=== PATIENT | female | born 1955 | race Caucasian/White ===

== ENCOUNTER → 2017-04-07 | Outpatient (CLI) | payer BC ==
[~2017-04-07] MED LIST: ADIPEX-P37.5 M2 PO; ADVIL200 MG PO; CYMBALTA60 MG PO; GLUCOPHAGE1000 MG PO; HYDROCODONE BIT1 T11 PO; NEURONTIN800 MG PO; PRILOSEC20 M1 PO; WELLBUTRIN XL150 MG PO; ZESTRIL10 MG PO
[2017-04-07 10:14] LABS: HEMATOCRIT 37.6 % (37.0-47.0); HEMOGLOBIN 11.7 g/dl (12.0-16.0); MEAN CELL VOLUME 81.7 fl (81.0-99.0); MEAN CORPUSCULAR HGB 25.4 pg (27.0-31.0); MEAN CORPUSCULAR HGB CONC 31.1 g/dl (33.0-37.0); MEAN PLATELET VOLUME 9.2 fl (9.6-12.3); RED BLOOD COUNT 4.6 10*6/uL (4.10-5.10); RED CELL DISTRI WIDTH 14.1 % (0-14.5); WHITE BLOOD COUNT 6.2 10*3/uL (4.8-10.8)
[2017-04-07 10:31] LABS: HEMOGLOBIN A1c 5.4 % (4.8-5.6)
[2017-04-07 10:46] LABS: ALBUMIN 3.6 gm/dl (3.1-4.5); BILIRUBIN, TOTAL 0.3 mg/dl (0.2-1.0); POTASSIUM 4.2 mmol/L (3.5-5.1); TOTAL PROTEIN 6.7 gm/dL (6.4-8.2)
== END | disposition home or self-care (01) ==
LOC: LAB 10:01
PROVIDERS: Family Medicine
DX: E55.9 Vitamin D deficiency, unspecified (principal); I10 Essential (primary) hypertension; E74.9 Disorder of carbohydrate metabolism, unspecified; K21.9 Gastro-esophageal reflux disease without esophagitis; E66.9 Obesity, unspecified; F41.1 Generalized anxiety disorder; E74.00 Glycogen storage disease, unspecified

== ENCOUNTER → 2017-05-07 | Outpatient (CLI) | payer BC ==
[2017-05-07 10:55] LABS: ALBUMIN 3.4 gm/dl (3.1-4.5); PHOSPHOROUS 3.5 mg/dL (2.5-4.9)
== END | disposition home or self-care (01) ==
LOC: LAB 09:59
PROVIDERS: Family Medicine
DX: I10 Essential (primary) hypertension (principal)

== ENCOUNTER → 2017-07-30 | Outpatient (CLI) | payer BC ==
[2017-07-30 11:40] LABS: ALBUMIN 3.6 gm/dl (3.1-4.5); ALKALINE PHOSPHATASE 91 U/L (45-117); BUN 17 mg/dl (7-24); CHLORIDE 111 mmol/L (98-107); CPK 51 U/L (26-192); CREATININE 1.19 mg/dL (0.55-1.02); POTASSIUM 3.9 mmol/L (3.5-5.1); SGOT/AST 12 IU/L (3-35); SGPT/ALT 21 U/L (12-78); SODIUM 140 mmol/L (136-145); TOTAL PROTEIN 6.9 gm/dL (6.4-8.2)
[2017-07-31 08:12] LABS: RHEUMATOID ARTHRITIS FACTOR <10.0 IU/mL (0.0-13.9)
[2017-07-31 13:09] LABS: ANTI-DSDNA ANTIBODIES 096339 <1 IU/mL (0-9)
== END | disposition home or self-care (01) ==
LOC: LAB 10:37
PROVIDERS: Family Medicine
DX: E74.9 Disorder of carbohydrate metabolism, unspecified (principal); M79.1 Myalgia; M25.50 Pain in unspecified joint

== ENCOUNTER → 2018-03-09 | Outpatient (CLI) | payer BC ==
[2018-03-09 09:17] LABS: HEMATOCRIT 37.4 % (37.0-47.0); HEMOGLOBIN 11.5 g/dl (12.0-16.0); MEAN CELL VOLUME 82.2 fl (81.0-99.0); MEAN CORPUSCULAR HGB 25.3 pg (27.0-31.0); MEAN CORPUSCULAR HGB CONC 30.7 g/dl (33.0-37.0); MEAN PLATELET VOLUME 9.9 fl (9.6-12.3); RED BLOOD COUNT 4.55 10*6/uL (4.10-5.10); RED CELL DISTRI WIDTH 14.6 % (0-14.5); WHITE BLOOD COUNT 7.1 10*3/uL (4.8-10.8)
[2018-03-09 09:38] LABS: ALBUMIN 3.4 gm/dl (3.1-4.5); ALKALINE PHOSPHATASE 95 U/L (45-117); BUN 14 mg/dl (7-24); CHLORIDE 108 mmol/L (98-107); CHOLESTEROL 184 mg/dL (<200); CREATININE 1.02 mg/dL (0.55-1.02); HDL CHOLESTEROL 37 mg/dl (40-60); LDL CHOLESTEROL 133 mg/dL (9-159); POTASSIUM 4.5 mmol/L (3.5-5.1); SGOT/AST 13 IU/L (3-35); SGPT/ALT 26 U/L (12-78); SODIUM 142 mmol/L (136-145); TOTAL PROTEIN 6.7 gm/dL (6.4-8.2); TRIGLYCERIDES 72 mg/dl (<150); VLDL CHOLESTEROL 14 mg/dL (6-40)
== END | disposition home or self-care (01) ==
LOC: LAB 08:48
PROVIDERS: Family Medicine
DX: E78.00 Pure hypercholesterolemia, unspecified (principal); I10 Essential (primary) hypertension; E55.9 Vitamin D deficiency, unspecified; K21.9 Gastro-esophageal reflux disease without esophagitis; R79.89 Other specified abnormal findings of blood chemistry

== ENCOUNTER → 2018-03-12 | Outpatient (CLI) | payer BC | END | disposition home or self-care (01) | LOC: US 12:30 | DX: I65.23 Occlusion and stenosis of bilateral carotid arteries (principal); H57.8 Other specified disorders of eye and adnexa ==

== ENCOUNTER 2018-10-11 16:10 | Emergency (ER) | payer BC ==
[~2018-10-11] VITALS: Ht 177.8 cm; Wt 90.7 kg
[~2018-10-11 16:10] MED LIST changes: +LEVAQUIN750 M1 PO; +MUCINEX ER600 MG PO; +PREDNISONE10 MG PO; +VITAMIN D5000 UNI1 PO
[2018-10-11 16:14] VITALS: BP 152/85
[2018-10-11] MEDS ORDERED: AMINOPHYLLIN200 MG PO (18:31)
== END 2018-10-11 18:40 | disposition home or self-care (01) ==
LOC: ED 16:10
DX: H65.91 Unspecified nonsuppurative otitis media, right ear (principal); J06.9 Acute upper respiratory infection, unspecified; I12.9 Hypertensive chronic kidney disease with stage 1 through stage 4 chronic kidney disease, or unspecified chronic kidney disease; E11.22 Type 2 diabetes mellitus with diabetic chronic kidney disease; N18.3 Chronic kidney disease, stage 3 (moderate); Z88.2 Allergy status to sulfonamides; Z88.8 Allergy status to other drugs, medicaments and biological substances; Z79.2 Long term (current) use of antibiotics; Z79.1 Long term (current) use of non-steroidal anti-inflammatories (NSAID); Z79.84 Long term (current) use of oral hypoglycemic drugs; J02.9 Acute pharyngitis, unspecified; Z79.899 Other long term (current) drug therapy; Z87.442 Personal history of urinary calculi; Z90.49 Acquired absence of other specified parts of digestive tract; Z90.710 Acquired absence of both cervix and uterus

== ENCOUNTER → 2018-11-06 | Outpatient (CLI) | payer BC ==
[~2018-11-06] MED LIST changes: +AMINOPHYLLIN200 MG PO
[2018-11-06 09:12] LABS: HEMATOCRIT 35.2 % (37.0-47.0); HEMOGLOBIN 10.7 g/dl (12.0-16.0); MEAN CORPUSCULAR HGB 23.7 pg (27.0-31.0); MEAN CORPUSCULAR HGB CONC 30.4 g/dl (33.0-37.0); MEAN PLATELET VOLUME 9.9 fl (9.6-12.3); RED BLOOD COUNT 4.51 10*6/uL (4.10-5.10); WHITE BLOOD COUNT 7.3 10*3/uL (4.8-10.8)
[2018-11-06 09:23] LABS: ALBUMIN 3.2 gm/dl (3.1-4.5); ALKALINE PHOSPHATASE 96 U/L (45-117); BUN 8 mg/dl (7-24); CHLORIDE 107 mmol/L (98-107); CREATININE 1.07 mg/dL (0.55-1.02); POTASSIUM 3.8 mmol/L (3.5-5.1); SGOT/AST 11 IU/L (3-35); SGPT/ALT 23 U/L (12-78); SODIUM 141 mmol/L (136-145); TOTAL PROTEIN 6.7 gm/dL (6.4-8.2)
== END | disposition home or self-care (01) ==
LOC: LAB 08:37
PROVIDERS: Family Medicine
DX: D64.9 Anemia, unspecified (principal); K21.9 Gastro-esophageal reflux disease without esophagitis; E74.9 Disorder of carbohydrate metabolism, unspecified

== ENCOUNTER → 2018-12-17 | Outpatient (CLI) | payer BC ==
[2018-12-18 07:08] LABS: RHEUMATOID ARTHRITIS FACTOR <10.0 IU/mL (0.0-13.9)
== END | disposition home or self-care (01) ==
LOC: LAB 08:24
PROVIDERS: Family Medicine
DX: E55.9 Vitamin D deficiency, unspecified (principal); M25.50 Pain in unspecified joint; M79.10 Myalgia, unspecified site

== ENCOUNTER → 2019-01-29 | Outpatient (CLI) | payer BC ==
[~2019-01-29] MED LIST changes: +DOXYCYCLINE100 MG PO; +TAMIFLU 75MG CA75 MG PO; +VITAMIN D32000 UNI1 PO
== END | disposition home or self-care (01) ==
LOC: RAD 13:37
DX: R06.02 Shortness of breath (principal)

== ENCOUNTER 2019-02-21 14:08 | Inpatient (IN) | payer BC ==
[~2019-02-21] VITALS: Ht 177.8 cm; Wt 95.3 kg
--- NOTE | ~2019-02-21 | CON ---
[place], [place] REPORT OF CONSULTATION NAME: JORGE RUDOLPH [facility] #: [id number] UNIT #: [id number] ROOM: 519 DOCTOR: GIDEON RASCON MDKIERRA BIRTHDATE: [birth year] DOS: 02/23/2019 PULMONARY CONSULTATION EVALUATION AND MANAGEMENT CONSULTATION REQUESTED BY: Hospitalist service. REASON FOR CONSULTATION: For the assessment of acute influenza infection and other respiratory symptoms. HISTORY OF PRESENT ILLNESS: This is a 63-year-old female patient with past history of bronchial asthma. The patient presented to the Emergency Room as he has been complaining of having increased respiratory symptom for the past few days. She has been treated with acute bronchitis in the past 2 months, frequently. The symptoms of coughing had not resolved. She has been recently treated with amoxicillin. The coughing has been noted with small amount of sputum expectoration, which is described as breath decreased as well. The patient came into the Emergency Room as he has been diagnosed with a positive ANCA nasal washings. The patient does have symptoms of wheezing. The patient is intermittently with chest congestion. She has been also noted with symptoms of hoarseness with current symptoms. Nonspecific chest pain was also reported. REVIEW OF SYSTEMS: CONSTITUTIONAL: The patient was noted to have some tachycardia, symptoms of fever and chills at home prior to admission to the hospital. EYES: Denies burning, redness, or discharge. EARS, NOSE, AND THROAT: Denies sore throat, hoarseness with some sore throat was reported. No postnasal drainage or epistaxis. CARDIOVASCULAR: No angina pain, edema, pain of the lower extremities. GASTROINTESTINAL: No dysphagia, nausea, vomiting, diarrhea, abdominal pain, hematemesis, melena, or hematochezia. GENITOURINARY: Denies symptoms of dysuria, suprapubic pain, or hematuria. MUSCULOSKELETAL: Aches and pains of the muscles reported on admission. There were no joint pain, redness, tenderness, or any deformities. CENTRAL NERVOUS SYSTEM: No dizziness, headache, diplopia, or syncopal episodes. Remaining systems were reviewed. They were noted all negative. PAST MEDICAL HISTORY: 1. Bronchial asthma. 2. Type 2 diabetes mellitus. 3. Chronic kidney disease stage 3. 4. Chronic moderate obesity. 5. History of fibromyalgia. 6. Essential hypertension. 7. Nephrolithiasis. 8. Polycystic ovarian syndrome. PAST SURGICAL HISTORY: 1. D and C. 2. Cholecystectomy. [place], [place] REPORT OF CONSULTATION [facility]: [id number] UNIT #: [id number] ROOM: [facility] DOCTOR: GIDEON RASCON MD,KIERRA BIRTHDATE: [birth year] 3. Hysterectomy. 4. Lithotripsy. 5. Nasal septoplasty. 6. Tubal ligation. SOCIAL HISTORY: The patient stated she is , has 2 children, lives at home. Nonsmoker lifetime. Denies alcohol use or illicit drugs. FAMILY HISTORY: The patient's father at 85 years of old age. Mother , 45 years old with complications of colon cancer. HOME MEDICATIONS: Listed as Cymbalta, Neurontin, Mucinex, Advil, Restoril and Prilosec. DRUG ALLERGY HISTORY: REPORTED THE PATIENT SULFA DRUGS CAUSING RASH, IODINE, CAUSING HIVES AND QUINAPRIL, GENERALIZED RASH WELL. CURRENT MEDICATIONS: Administered today as Cymbalta, lisinopril, vitamin D, DuoNeb, ibuprofen, Zithromax, Rocephin, Lovenox, Protonix, gabapentin, Mucinex, Solu-Medrol 40 mg b.i.d., Tamiflu 75 mg b.i.d. and other p.r.n. medications. PHYSICAL EXAMINATION: GENERAL: This is a 63-year-old female patient currently sitting on the bed. The patient this morning has been noted with [id number] hoarseness upon speaking. No acute distress. Height of 5 feet 10 inches, weight of 210 pounds. VITAL SIGNS: Normal temperature since admission, respiratory rate 18-20, heart rate 89-102, blood pressure 127/63-141/66. Pulse oxygen saturation, rest on room air was 94% saturation. HEENT: Chronic moderate obesity. Head was atraumatic. Eyes nonicterus. CARDIOVASCULAR SYSTEM: S1, S2 audible. LUNGS: Moderate decreased breath sounds, rhonchorous breathing in the lungs bilaterally with scattered wheezing. ABDOMEN: Soft, nontender. Bowel sounds present. EXTREMITIES: No edema. MUSCULOSKELETAL: Without any acute deformity. CENTRAL NERVOUS SYSTEM: Cranial nerves 2-12 intact. LABORATORY DATA: CBC on admission on 02/21/2019, essentially is 4.7% eosinophils. WBC count 5.4 with normal hemoglobin and hematocrit. Lactic acid 1.2 on 02/21/2019. CMP on 02/21/2019, BUN 16, creatinine 1.35. Remaining CMP normal except AST of 37. CBC that was done this morning, WBC count 4.6, hemoglobin 10.2, platelet count was normal. CMP that was done 326, BUN normal, creatinine normal, glucose 161. Albumin 3.0. PT/INR yesterday was noted normal on admission. Influenza A and B, nasal washing screen noted positive for influenza infection. RADIOLOGY DATA: Reviewed has a chest x-ray that was done on 02/23/2019, noted normal study. The chest x-ray that was done on 02/21/2019, does not show acute pulmonary infiltration. [place], [place] REPORT OF CONSULTATION NAME: JORGE RUDOLPH UNIT #: [id number] ROOM: [facility] DOCTOR: KIERRA FRANKLIN MD BIRTHDATE: [birth year] IMPRESSION: 1. The patient to come into the hospital with acute exacerbation of bronchial asthma and result of acute influenza infection. There was no evidence of acute pneumonia at this time, viral or bacterial in origin. 2. Chronic moderate obesity as well. 3. History of type 2 diabetes mellitus. 4. Leukopenia, most likely related to current acute viral illness. PLAN OF TREATMENT: Continuation of the corticosteroids, bronchodilators, oxygen supplementation. Assessment upon discharge for the pulmonary disease was recommended. The patient was noted nonsmoker. Other therapy, plan of management and other treatment as previously would be continued without any changes. Usual care, other supportive plan of management and care plan. KIERRA MENESES MD CM:CONSTR:REPORT OF CONSULTATION 1513 02/24/19 0338 interface
--- NOTE | ~2019-02-21 | EKG ---
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
[~2019-02-21 14:08] MED LIST changes: -DOXYCYCLINE100 MG PO; -TAMIFLU 75MG CA75 MG PO; -VITAMIN D32000 UNI1 PO
[2019-02-21 14:12] VITALS: BP 100/69
[2019-02-21 14:37] LABS: BASO % 0.4 % (0.0-1.0); EOS # 0.3 10*3/uL (0.0-0.4); EOS % 4.7 % (1.0-4.0); HEMATOCRIT 39.9 % (37.0-47.0); HEMOGLOBIN 12.2 g/dl (12.0-16.0); LYMPH # 1.2 10*3/uL (1.3-4.4); LYMPH % 22.2 % (27.0-41.0); MEAN CELL VOLUME 80.6 fl (81.0-99.0); MEAN CORPUSCULAR HGB 24.6 pg (27.0-31.0); MEAN CORPUSCULAR HGB CONC 30.6 g/dl (33.0-37.0); MEAN PLATELET VOLUME 10.3 fl (9.6-12.3); MONO # 0.5 10*3/uL (0.1-1.0); MONO % 9.2 % (3.0-9.0); NEUT # 3.4 10*3/uL (2.3-7.9); NEUT % 63.3 % (47.0-73.0); PLATELET COUNT AUTOMATED 245 10*3/uL (130-400); RED BLOOD COUNT 4.95 10*6/uL (4.10-5.10); RED CELL DISTRI WIDTH 18.2 % (0-14.5); WHITE BLOOD COUNT 5.4 10*3/uL (4.8-10.8)
[2019-02-21 15:12] LABS: ALBUMIN 3.3 gm/dl (3.1-4.5); ALKALINE PHOSPHATASE 115 U/L (45-117); BUN 16 mg/dl (7-24); CHLORIDE 103 mmol/L (98-107); CREATININE 1.35 mg/dL (0.55-1.02); POTASSIUM 4.3 mmol/L (3.5-5.1); SGOT/AST 37 IU/L (3-35); SGPT/ALT 37 U/L (12-78); SODIUM 137 mmol/L (136-145); TOTAL PROTEIN 7.6 gm/dL (6.4-8.2)
[2019-02-21 15:14] LABS: TROPONIN I < 0.015 ng/ml (<0.045)
[2019-02-21 15:47] VITALS: BP 110/68
--- NOTE | 2019-02-21 16:00 | NUR ---
PT W/O PAIN RELIEF WITH MEDS.
[2019-02-21 16:15] VITALS: BP 109/67
--- NOTE | 2019-02-21 16:15 | NUR ---
Time: 1614 A 63 year old FEMALE admitted to 5E under services of SHER LOVE DO. Pt. arrived via bed from ER. Chief complaint: DYSPNEA, COUGH. YO PRATT
--- NOTE | 2019-02-21 16:21 | NUR ---
ZITHROMAX 500MG/250ML CONTINING ADMINISTRATION TO FLOOR.
--- NOTE | 2019-02-21 16:42 | NUR ---
NOTIFIED DR HAYS OF PATIENTS ARRIVAL TO THE FLOOR
--- NOTE | 2019-02-21 16:53 | NUR ---
PATIENTS MED REC UP TO DATE WITH PATIENT
[2019-02-21 20:00] VITALS: BP 112/62
--- NOTE | 2019-02-21 20:40 | NUR ---
PT MEDICATED W/NORCO FOR C/O GENERAL DISCOMFORT. PT VOICE HOARSE, HARSH COUGH NOTED, FACE FLUSHED, POSTERIOR EXP WHEEZE AUSCULTATED, PT C/O ZAMARRIPA. WILL MONITOR FOR EFFECTIVENESS OF PAIN MED. FLUIDS ENCOURAGED. CALL LIGHT IN REACH.
--- NOTE | 2019-02-21 23:10 | NUR ---
DR. STEVENSON NOTIFIED OF PT'S HOME MEDS NOT R/O AND PT REQUESTING NEURONTIN. T.O. RCVD TO R/O NEURONTIN.
[2019-02-22] VITALS: BP 114/67
--- NOTE | 2019-02-22 00:10 | NUR ---
PT QUESTIONED RE DIABETES. PT STATES SHE IS DIABETIC BUT DOES NOT CHECK HER BLOOD SUGAR LEVELS AT HOME. PT DENIES NEED FOR THIS NURSE TO CHECK HER SUGAR AT THIS TIME.
--- NOTE | 2019-02-22 04:34 | NUR ---
24 HR chart check completed.
[2019-02-22 06:49] LABS: HEMATOCRIT 34.5 % (37.0-47.0); HEMOGLOBIN 10.6 g/dl (12.0-16.0); LYMPH # 0.9 10*3/uL (1.3-4.4); LYMPH % 19.1 % (27.0-41.0); MEAN CELL VOLUME 80.6 fl (81.0-99.0); MEAN CORPUSCULAR HGB 24.8 pg (27.0-31.0); MEAN CORPUSCULAR HGB CONC 30.7 g/dl (33.0-37.0); MEAN PLATELET VOLUME 10.3 fl (9.6-12.3); MONO # 0.4 10*3/uL (0.1-1.0); MONO % 7.9 % (3.0-9.0); NEUT # 3.5 10*3/uL (2.3-7.9); NEUT % 72.6 % (47.0-73.0); PLATELET COUNT AUTOMATED 243 10*3/uL (130-400); RED BLOOD COUNT 4.28 10*6/uL (4.10-5.10); RED CELL DISTRI WIDTH 18.5 % (0-14.5); WHITE BLOOD COUNT 4.8 10*3/uL (4.8-10.8)
[2019-02-22 07:15] LABS: POTASSIUM 5.2 mmol/L (3.5-5.1)
[2019-02-22 07:25] LABS: ALBUMIN 2.8 gm/dl (3.1-4.5); CREATININE 1.24 mg/dL (0.55-1.02); PHOSPHOROUS 5.3 mg/dL (2.5-4.9); THYROID STIM HORMONE (HS) 0.306 uIU/ml (0.358-4.75); TOTAL PROTEIN 6.7 gm/dL (6.4-8.2)
[2019-02-22 08:00] VITALS: BP 125/74
[2019-02-22 09:28] LABS: VITAMIN D, 25-HYDROXY 24.6 ng/mL (30-100)
[2019-02-22 12:00] VITALS: BP 122/77
--- NOTE | 2019-02-22 12:14 | NUR ---
DR. MENESES CALLED AT THIS TIME AND MADE AWARE OF NEW CONSULT. NO NEW ORDERS RECIEVED.
--- NOTE | 2019-02-22 14:03 | NUR ---
[employer] Representative in to talk to patient. Patient states lives at HOME with . There are SEVERAL steps in the home. Physician: AFSHAN [facility] [place] [facility] [place] [facility]: NONE Patient's level of ADLs: INDEPENDENT Patient has working utilities: YES DME: NONE Follow-up physician's appointment after d/c: WILL BE MADE BY HOSPITALIST NURSE DIRECTOR ON DISCHARGE Does patient want to access PORTAL?: NO Discharge plan PT STATES SHE LIVES AT HOME WITH HER AND IS INDEPENDENT IN CARE. DENIES ANY NEEDS AT HOME ON DISCHARGE. WILL CONTINUE TO FOLLOW. PT STATES SHE WILL HAVE A RIDE ON DISCHARGE. . [place] AYALA
[2019-02-22 16:00] VITALS: BP 128/70
--- NOTE | 2019-02-22 19:00 | NUR ---
PT AWAKE IN BED DURING BEDSIDE SHIFT REPORT. NO C/O VOICED AT PRESENT TIME. CALL LIGHT IN REACH.
[2019-02-22 20:00] VITALS: BP 141/66
[2019-02-23] VITALS: BP 136/77
[2019-02-23 06:21] LABS: HEMATOCRIT 33.3 % (37.0-47.0); HEMOGLOBIN 10.2 g/dl (12.0-16.0); LYMPH % 22.2 % (27.0-41.0); MEAN CELL VOLUME 81.4 fl (81.0-99.0); MEAN CORPUSCULAR HGB 24.9 pg (27.0-31.0); MEAN CORPUSCULAR HGB CONC 30.6 g/dl (33.0-37.0); MEAN PLATELET VOLUME 10.1 fl (9.6-12.3); MONO # 0.3 10*3/uL (0.1-1.0); MONO % 6.6 % (3.0-9.0); NEUT # 3.2 10*3/uL (2.3-7.9); NEUT % 70.5 % (47.0-73.0); PLATELET COUNT AUTOMATED 232 10*3/uL (130-400); RED BLOOD COUNT 4.09 10*6/uL (4.10-5.10); RED CELL DISTRI WIDTH 18.5 % (0-14.5); WHITE BLOOD COUNT 4.6 10*3/uL (4.8-10.8)
[2019-02-23 06:47] LABS: ALKALINE PHOSPHATASE 89 U/L (45-117); BUN 18 mg/dl (7-24); CHLORIDE 104 mmol/L (98-107); CREATININE 1.02 mg/dL (0.55-1.02); SGOT/AST 21 IU/L (3-35); SGPT/ALT 28 U/L (12-78); SODIUM 136 mmol/L (136-145); TOTAL PROTEIN 6.5 gm/dL (6.4-8.2)
[2019-02-23 08:00] VITALS: BP 127/83
[2019-02-23] MEDS ORDERED: VITAMIN D32000 UNI1 PO (11:07)
[2019-02-23] MEDS ORDERED: TAMIFLU 75MG CA75 MG PO (11:07)
[2019-02-23] MEDS ORDERED: PREDNISONE10 MG PO (11:07)
[2019-02-23] MEDS ORDERED: DOXYCYCLINE100 MG PO (11:07)
[2019-02-23 12:00] VITALS: BP 134/84
--- NOTE | 2019-02-23 14:38 | NUR ---
Discharge instructions reviewed with patient/family. Patient receptive and verbalizes understanding. Follow-up care arranged. Written instructions given to patient/family. HEAVEN HAJI
== END 2019-02-23 14:38 | disposition home or self-care (01) | DRG 193 ==
LOC: ED 14:08 → EDHOLD 15:31 → 5E 15:31
PROVIDERS: Family Medicine; Nurse Practitioner Family; Student in an Organized Health Care Education/Training Program; ADMIT Internal Medicine
DX: J10.1 Influenza due to other identified influenza virus with other respiratory manifestations (principal); N17.0 Acute kidney failure with tubular necrosis; J45.21 Mild intermittent asthma with (acute) exacerbation; J18.0 Bronchopneumonia, unspecified organism; N18.3 Chronic kidney disease, stage 3 (moderate); I12.9 Hypertensive chronic kidney disease with stage 1 through stage 4 chronic kidney disease, or unspecified chronic kidney disease; E11.22 Type 2 diabetes mellitus with diabetic chronic kidney disease; M79.7 Fibromyalgia; E66.9 Obesity, unspecified; D72.810 Lymphocytopenia; E11.65 Type 2 diabetes mellitus with hyperglycemia; Z90.710 Acquired absence of both cervix and uterus; Z98.51 Tubal ligation status; Z90.49 Acquired absence of other specified parts of digestive tract; Z82.49 Family history of ischemic heart disease and other diseases of the circulatory system; Z80.0 Family history of malignant neoplasm of digestive organs; Z88.2 Allergy status to sulfonamides; Z88.8 Allergy status to other drugs, medicaments and biological substances; Z91.041 Radiographic dye allergy status

== ENCOUNTER → 2019-03-10 | Outpatient (CLI) | payer BC ==
[~2019-03-10] MED LIST changes: +DOXYCYCLINE100 MG PO; +TAMIFLU 75MG CA75 MG PO; +VITAMIN D32000 UNI1 PO
== END | disposition home or self-care (01) ==
LOC: RAD 10:11
DX: J18.9 Pneumonia, unspecified organism (principal)

== ENCOUNTER → 2019-03-19 | Outpatient (CLI) | payer BC ==
--- NOTE | ~2019-03-19 | ST ---
[place], [place] EXERCISE STRESS TEST REPORT NAME: JORGE RUDOLPH [facility] #: [id number] UNIT #: [id number] ROOM: DOCTOR: SHANTEL RICH,GRAY BIRTHDATE: [birth year] DOS: 03/19/2019 LEXISCAN STRESS TEST REASON FOR TEST: Chest pain. PHYSICAL EXAMINATION: NECK: Supple. LUNGS: Clear anteriorly. HEART: Regular rhythm. PROTOCOL: Lexiscan protocol. Maximum heart rate 112. Peak blood pressure 128/80. SYMPTOMS: The patient is chest pain free. EKG: Resting EKG showed sinus rhythm. Stress EKG showed no ischemia, no arrhythmias. CONCLUSION: Clinically, the patient is chest pain free. EKG is nonischemic. POST-STRESS COMPLICATIONS: None. The patient received total of 0.4 mg Lexiscan. GRAY FUNES MD CM:STRESS:EXERCISE STRESS TEST REPORT 1603 [id number] GRAY FUNES MD
--- NOTE | 2019-03-19 12:52 | NUR ---
INFORMED SIGNED OBTAINED FOR LEXISCAN STRESS TEST WITH DR FUNES. RESTING EKG NSR HR 94 BP 128/80, PULSE OX 98% LUNGS CLEAR, DIMINISHED IN THE BASES. PT COMPLETED ONE MINUTE OF A LEXISCAN PROTOCOL WITH PT RECEIVING LEXISCAN 0.4MG IV OVER 10 SECONDS. NO ARRHYTHMIAS OR ST CHANGES SEEN. PT C/O SOB WITH INJECTION. LAST RECOVERY HR OF 104 BP 122/74. PT IN STABLE CONDITION, AWAITING NUCLEAR IMAGES.
== END | disposition home or self-care (01) ==
LOC: CARD 02:24
DX: R06.02 Shortness of breath (principal); R07.9 Chest pain, unspecified; I10 Essential (primary) hypertension

== ENCOUNTER → 2019-08-03 | Outpatient (CLI) | payer BC | END | disposition home or self-care (01) | LOC: RAD 10:21 | DX: R05 Cough (principal); R06.02 Shortness of breath; R53.83 Other fatigue ==

== ENCOUNTER → 2019-11-29 | Outpatient (CLI) | payer BC | END | disposition home or self-care (01) | LOC: RAD 13:47 | DX: R05 Cough (principal); R06.02 Shortness of breath; R06.2 Wheezing ==

== ENCOUNTER → 2019-12-16 | Outpatient (CLI) | payer BC | END | disposition home or self-care (01) | LOC: RAD 08:38 | DX: R05 Cough (principal); R06.02 Shortness of breath ==

== ENCOUNTER → 2020-05-24 | Outpatient (CLI) | payer OTHER ==
[2020-05-24 08:43] LABS: HEMATOCRIT 39.2 % (37.0-47.0); MEAN CELL VOLUME 80.7 fl (81.0-99.0); MEAN CORPUSCULAR HGB 23.9 pg (27.0-31.0); MEAN CORPUSCULAR HGB CONC 29.6 g/dl (33.0-37.0); MEAN PLATELET VOLUME 9.6 fl (9.6-12.3); RED BLOOD COUNT 4.86 10*6/uL (4.10-5.10); RED CELL DISTRI WIDTH 15.2 % (0-14.5); WHITE BLOOD COUNT 8.3 10*3/uL (4.8-10.8)
[2020-05-24 09:08] LABS: ALBUMIN 3.6 gm/dl (3.1-4.5); CREATININE 1.41 mg/dL (0.55-1.02); POTASSIUM 4.8 mmol/L (3.5-5.1); TOTAL PROTEIN 7.2 gm/dL (6.4-8.2)
== END | disposition home or self-care (01) ==
LOC: CT 07:44
PROVIDERS: Family Medicine
DX: R05 Cough (principal); M25.561 Pain in right knee; M25.562 Pain in left knee; M25.551 Pain in right hip; M25.552 Pain in left hip; E78.00 Pure hypercholesterolemia, unspecified; N28.1 Cyst of kidney, acquired; K44.9 Diaphragmatic hernia without obstruction or gangrene; Z77.22 Contact with and (suspected) exposure to environmental tobacco smoke (acute) (chronic)

== ENCOUNTER 2020-06-25 17:20 | Observation (INO) | payer OTHER ==
[~2020-06-25] VITALS: Ht 177.8 cm; Wt 110.7 kg
[2020-06-25 17:31] VITALS: BP 99/65
[2020-06-25 18:21] LABS: BASO # 0.1 10*3/uL (0.0-0.1); BASO % 0.7 % (0.0-1.0); EOS # 0.3 10*3/uL (0.0-0.4); EOS % 3.3 % (1.0-4.0); LYMPH # 1.4 10*3/uL (1.3-4.4); LYMPH % 17.9 % (27.0-41.0); MEAN CELL VOLUME 79.1 fl (81.0-99.0); MEAN CORPUSCULAR HGB 23.7 pg (27.0-31.0); MEAN PLATELET VOLUME 10.2 fl (9.6-12.3); MONO # 0.5 10*3/uL (0.1-1.0); NEUT # 5.5 10*3/uL (2.3-7.9); NEUT % 71.4 % (47.0-73.0); PLATELET COUNT AUTOMATED 260 10*3/uL (130-400); RED BLOOD COUNT 4.55 10*6/uL (4.10-5.10); RED CELL DISTRI WIDTH 15.1 % (0-14.5); WHITE BLOOD COUNT 7.7 10*3/uL (4.8-10.8)
[2020-06-25 18:32] LABS: ACT PARTIAL THROMBO TIME 23.4 SECONDS (20.0-32.1)
[2020-06-25 18:37] LABS: ALBUMIN 3.4 gm/dl (3.1-4.5); ALKALINE PHOSPHATASE 80 U/L (45-117); BUN 17 mg/dl (7-24); CHLORIDE 107 mmol/L (98-107); CREATININE 1.79 mg/dL (0.55-1.02); POTASSIUM 4.1 mmol/L (3.5-5.1); SGOT/AST 18 IU/L (3-35); SGPT/ALT 34 U/L (12-78); SODIUM 138 mmol/L (136-145); TOTAL PROTEIN 6.7 gm/dL (6.4-8.2)
[2020-06-25 18:38] LABS: TROPONIN I < 0.015 ng/ml (<0.045)
[2020-06-25 19:09] VITALS: BP 112/67
[2020-06-25 19:30] VITALS: BP 111/63
[2020-06-25 19:50] VITALS: BP 112/69
[2020-06-25 21:40] LABS: BILIRUBIN NEGATIVE (NEGATIVE); BLOOD NEGATIVE (NEGATIVE); CLARITY CLEAR (CLEAR); COLOR YELLOW (YELLOW); GLUCOSE NEGATIVE (NEGATIVE); KETONE NEGATIVE (NEGATIVE); LEUKO ESTERASE 1+ (NEGATIVE); NITRITE NEGATIVE (NEGATIVE); SPECIFIC GRAVITY 1.015 (1.005-1.030); UROBILINOGEN 0.2 E.U./dl (0.2-1.0)
[2020-06-25 21:45] LABS: BACTERIA 1+
[2020-06-26] VITALS: BP 125/79
[2020-06-26 05:00] VITALS: BP 115/79
[2020-06-26 08:00] VITALS: BP 135/85
[2020-06-26 12:00] VITALS: BP 134/80
== END 2020-06-26 15:57 | disposition home or self-care (01) ==
LOC: ED 17:20 → 5E 18:38 → EDHOLD 18:38 → 5E 19:40
PROVIDERS: Emergency Medicine; ADMIT Internal Medicine
DX: R55 Syncope and collapse (principal); E11.22 Type 2 diabetes mellitus with diabetic chronic kidney disease; I12.9 Hypertensive chronic kidney disease with stage 1 through stage 4 chronic kidney disease, or unspecified chronic kidney disease; N18.3 Chronic kidney disease, stage 3 (moderate); M79.7 Fibromyalgia; K21.0 Gastro-esophageal reflux disease with esophagitis; J45.909 Unspecified asthma, uncomplicated; F32.9 Major depressive disorder, single episode, unspecified; E66.01 Morbid (severe) obesity due to excess calories; Z68.35 Body mass index [BMI] 35.0-35.9, adult

== ENCOUNTER → 2020-07-03 | Outpatient (CLI) | payer OTHER ==
[2020-07-03 09:07] LABS: ALBUMIN 3.7 gm/dl (3.1-4.5); CREATININE 1.36 mg/dL (0.55-1.02); POTASSIUM 4.5 mmol/L (3.5-5.1)
== END | disposition home or self-care (01) ==
LOC: LAB 07:57
PROVIDERS: Family Medicine
DX: R79.89 Other specified abnormal findings of blood chemistry (principal)

== ENCOUNTER → 2020-08-16 | Outpatient (CLI) | payer OTHER ==
[2020-08-16 09:18] LABS: HEMATOCRIT 40.7 % (37.0-47.0); MEAN CELL VOLUME 78.7 fl (81.0-99.0); MEAN CORPUSCULAR HGB 23.2 pg (27.0-31.0); MEAN CORPUSCULAR HGB CONC 29.5 g/dl (33.0-37.0); MEAN PLATELET VOLUME 10.2 fl (9.6-12.3); RED BLOOD COUNT 5.17 10*6/uL (4.10-5.10); WHITE BLOOD COUNT 7.6 10*3/uL (4.8-10.8)
[2020-08-16 09:42] LABS: POTASSIUM 4.1 mmol/L (3.5-5.1)
[2020-08-16 09:45] LABS: CREATININE 1.25 mg/dL (0.55-1.02); TOTAL PROTEIN 7.3 gm/dL (6.4-8.2)
== END | disposition home or self-care (01) ==
LOC: LAB 08:44
PROVIDERS: ATTEND Family Medicine
DX: E78.00 Pure hypercholesterolemia, unspecified (principal); E74.9 Disorder of carbohydrate metabolism, unspecified; R53.83 Other fatigue

== ENCOUNTER → 2021-01-10 | Outpatient (CLI) | payer OTHER ==
[2021-01-10 08:21] LABS: HEMATOCRIT 39.5 % (37.0-47.0); MEAN CORPUSCULAR HGB 23.2 pg (27.0-31.0); MEAN CORPUSCULAR HGB CONC 30.1 g/dl (33.0-37.0); MEAN PLATELET VOLUME 9.6 fl (9.6-12.3); RED BLOOD COUNT 5.13 10*6/uL (4.10-5.10); RED CELL DISTRI WIDTH 14.9 % (0-14.5); WHITE BLOOD COUNT 6.5 10*3/uL (4.8-10.8)
[2021-01-10 08:52] LABS: ALBUMIN 3.4 gm/dl (3.1-4.5); ALKALINE PHOSPHATASE 104 U/L (45-117); BUN 14 mg/dl (7-24); CHLORIDE 110 mmol/L (98-107); CHOLESTEROL 179 mg/dL (<200); CPK 53 U/L (26-192); CREATININE 1.06 mg/dL (0.55-1.02); HDL CHOLESTEROL 39 mg/dl (40-60); LDL CHOLESTEROL 125 mg/dL (9-159); POTASSIUM 4.6 mmol/L (3.5-5.1); SGOT/AST 14 IU/L (3-35); SGPT/ALT 29 U/L (12-78); SODIUM 141 mmol/L (136-145); TOTAL PROTEIN 6.6 gm/dL (6.4-8.2); TRIGLYCERIDES 75 mg/dl (<150); VLDL CHOLESTEROL 15 mg/dL (6-40)
[2021-01-10 09:32] LABS: VITAMIN D, 25-HYDROXY 20.9 ng/mL (30-100)
== END | disposition home or self-care (01) ==
LOC: LAB 07:52
PROVIDERS: ATTEND Family Medicine
DX: I10 Essential (primary) hypertension (principal); R53.83 Other fatigue; E78.2 Mixed hyperlipidemia; E55.9 Vitamin D deficiency, unspecified; E74.9 Disorder of carbohydrate metabolism, unspecified; Z79.899 Other long term (current) drug therapy

== ENCOUNTER 2021-02-19 16:55 | Emergency (ER) | payer OTHER ==
[~2021-02-19] VITALS: Ht 177.8 cm; Wt 90.7 kg
[2021-02-19 20:24] VITALS: BP 124/86
== END 2021-02-19 20:44 | disposition home or self-care (01) ==
LOC: ED 16:55
DX: S63.592A Other specified sprain of left wrist, initial encounter (principal); S00.83XA Contusion of other part of head, initial encounter; M25.561 Pain in right knee; Z90.49 Acquired absence of other specified parts of digestive tract; Z90.710 Acquired absence of both cervix and uterus; Z98.51 Tubal ligation status; Z79.899 Other long term (current) drug therapy; Z88.2 Allergy status to sulfonamides; Z88.8 Allergy status to other drugs, medicaments and biological substances; W18.30XA Fall on same level, unspecified, initial encounter; Y93.01 Activity, walking, marching and hiking; Y92.89 Other specified places as the place of occurrence of the external cause; Y99.9 Unspecified external cause status

== ENCOUNTER → 2021-03-08 | Outpatient (CLI) | payer OTHER | END | disposition home or self-care (01) | LOC: US 08:15 | PROVIDERS: ATTEND Family Medicine | DX: E04.2 Nontoxic multinodular goiter (principal) ==

== ENCOUNTER 2023-02-22 12:30 | Emergency (ER) | payer OTHER ==
[~2023-02-22] VITALS: Ht 177.8 cm; Wt 90.7 kg
[2023-02-22 12:45] VITALS: BP 174/88
[2023-02-22 12:58] LABS: BILIRUBIN Negative (Negative); BLOOD 1+ (Negative); CLARITY Clear (Clear); COLOR Yellow (Yellow); GLUCOSE Negative (Negative); KETONE Negative (Negative); LEUKO ESTERASE 3+ (Negative); NITRITE Positive (Negative); PH 5.5 (4.5-8.0); SPECIFIC GRAVITY 1.015 (1.001-1.030); UROBILINOGEN 0.2 E.U./dl (0.0-1.0)
[2023-02-22 13:09] LABS: WBC TNTC wbc/hpf (0-5)
[2023-02-22 13:11] LABS: BACTERIA 3+; EPITHELIAL CELLS 0-2
[2023-02-22 14:35] LABS: BASO % 0.5 % (0.0-1.0); EOS # 0.2 10*3/uL (0.0-0.4); EOS % 2.1 % (1.0-4.0); HEMATOCRIT 43.4 % (37.0-47.0); LYMPH # 1.3 10*3/uL (1.3-4.4); LYMPH % 16.6 % (27.0-41.0); MEAN CELL VOLUME 81.6 fl (81.0-99.0); MEAN CORPUSCULAR HGB 26.3 pg (27.0-31.0); MEAN CORPUSCULAR HGB CONC 32.3 g/dl (33.0-37.0); MEAN PLATELET VOLUME 9.8 fl (9.6-12.3); MONO # 0.5 10*3/uL (0.1-1.0); MONO % 6.9 % (3.0-9.0); NEUT # 5.6 10*3/uL (2.3-7.9); NEUT % 73.4 % (47.0-73.0); PLATELET COUNT AUTOMATED 243 10*3/uL (130-400); RED BLOOD COUNT 5.32 10*6/uL (4.10-5.10); RED CELL DISTRI WIDTH 14.5 % (0-14.5); WHITE BLOOD COUNT 7.7 10*3/uL (4.8-10.8)
[2023-02-22 14:54] LABS: ALKALINE PHOSPHATASE 112 U/L (46-116); BUN 13 mg/dl (9-23); CHLORIDE 102 mmol/L (98-107); LIPASE 31 U/L (12-53); SGPT/ALT 36 U/L (10-49); TOTAL PROTEIN 7.6 gm/dL (6.0-8.0)
[2023-02-22] MEDS ORDERED: OMNICEF300 MG PO (15:29)
[2023-02-22] MEDS ORDERED: PERCOCET 5-3251 EACH PO (15:29)
== END 2023-02-22 16:17 | disposition home or self-care (01) ==
LOC: ED 12:30
PROVIDERS: Family Medicine
DX: N20.0 Calculus of kidney (principal); N39.0 Urinary tract infection, site not specified; E11.9 Type 2 diabetes mellitus without complications; M79.7 Fibromyalgia; J45.909 Unspecified asthma, uncomplicated; I10 Essential (primary) hypertension; K21.9 Gastro-esophageal reflux disease without esophagitis; F32.A Depression, unspecified; Z88.2 Allergy status to sulfonamides; Z91.041 Radiographic dye allergy status; Z88.8 Allergy status to other drugs, medicaments and biological substances; Z90.49 Acquired absence of other specified parts of digestive tract; Z90.710 Acquired absence of both cervix and uterus; Z98.51 Tubal ligation status; Z98.890 Other specified postprocedural states

== ENCOUNTER → 2025-08-12 | Outpatient (CLI) | payer MEDICARE ==
[~2025-08-12] MED LIST changes: +OMNICEF300 MG PO; +PERCOCET 5-3251 EACH PO
== END | disposition home or self-care (01) ==
LOC: RAD 00:03
PROVIDERS: ATTEND Nurse Practitioner Family
DX: M81.0 Age-related osteoporosis without current pathological fracture (principal); Z13.820 Encounter for screening for osteoporosis

== ENCOUNTER → 2025-11-02 | Outpatient (CLI) | payer MEDICARE | END | disposition home or self-care (01) | LOC: RAD 08:45 | PROVIDERS: ATTEND Nurse Practitioner Family | DX: R05.9 Cough, unspecified (principal) ==